=== PATIENT | male | born 1945 | race Caucasian/White ===

== ENCOUNTER 2018-06-27 09:11 | Emergency (ER) | payer MEDICARE, OTHER, SELFPAY ==
[2018-06-27] VITALS (7 sets, daily range): BP systolic 120–142; BP diastolic 64–88; PULSE 42–76; RESP 13–18; TEMP 36.4; O2SAT 93–100
--- NOTE | 2018-06-27 09:15 | DI.RAD.S_ITS ---
PROCEDURE: XR HIP W PEL IF DONE RT 2V INDICATIONS: right pain TECHNIQUE: AP pelvis with lateral view(s) of the right hip(s). COMPARISON: None. FINDINGS: Bones: Symmetric appearing mild to moderate bilateral hip joint osteoarthritic changes are seen. No evidence of avascular necrosis. No fractures or dislocations. Pelvic ring appears intact. No suspicious bony lesions. Soft tissues: The visualized bowel gas pattern is normal. No suspicious soft tissue calcifications. IMPRESSION: Symmetric appearing bilateral hip joint osteoarthritis. No hip fracture or dislocation. No evidence of avascular necrosis. Dictated by: Ayo aSntiago M.D. on 06/27/2018 at 9:32 Approved by: Aoy Santiago M.D. on 06/27/2018 at 9:35
--- NOTE | 2018-06-27 09:24 | DI.CT.S_ITS ---
PROCEDURE: CT HEAD/BRAIN WO CON INDICATIONS: syncope TECHNIQUE: Noncontrast 4.5 mm thick angled axial sections acquired from the foramen magnum to the vertex, with coronal and sagittal reformats. For radiation dose reduction, the following was used: automated exposure control, adjustment of mA and/or kV according to patient size. COMPARISON: None. FINDINGS: Image quality: Excellent. CSF spaces: Basal cisterns are patent. No extra-axial fluid collections. The ventricles are symmetric in size and shape. Brain: Subtle hypodensity in right inferior cerebellum could represent small subacute infarct. No intracranial bleeds or masses. There is mild cerebral volume loss for age, with resultant ventricular and sulcal prominence. There are mild periventricular and deep white matter chronic small vessel ischemic changes. There is intracranial internal carotid artery atherosclerosis. Skull and face: Calvarium and visualized facial bones appear intact, without suspicious lesions. Sinuses: Visualized sinuses and mastoids are clear. IMPRESSION: 1. Subtle hypodensity in right inferior cerebellum suggests small subacute infarct. MRI is suggested for further evaluation. 2. Cerebral volume loss and chronic microvascular ischemic changes. Dictated by: Obey Zaragoza M.D. on 06/27/2018 at 9:43 Approved by: Obey Zaragoza M.D. on 06/27/2018 at 9:47
[2018-06-27] MEDS: SODIUM CHLORIDE 0.9% 1,000 ML 150 ML IV (09:41)
[2018-06-27] MEDS: TET,DIPH,PERTUSS(ACELL),VAC/PF 0.5 ML SYRINGE IM (09:42)
--- NOTE | 2018-06-27 09:46 | ED_ITS ---
HPI - Fall General Chief Complaint: Fall Stated Complaint: Fall, slipped Time Seen by Provider: 06/27/18 09:15 Source: patient and EMS Mode of arrival: EMS Limitations: no limitations History of Present Illness HPI Narrative: Patient is a 72-year-old male who presents after of syncopal episode this morning. He sitting in his chair when the son said he witnessed him pass out briefly for about 15 sec at which point he slid out of the chair landing on his right hip and unable to walk on it. 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 Denies any chest pain heart palpitations dizziness lightheadedness. Complaining of only pain in his right hamstring area. MD complaint: fall Onset (ago): hour(s) Fall from: chair Fall witnessed: yes, by family (Son) Place fall occurred: home Loss of consciousness: yes Length of LOC: second(s) Prolonged down time: no Symptoms prior to fall: none Related Data Home Medications Medication Instructions Recorded Confirmed Fish Oil 1 cap PO DAILY 06/27/18 06/27/18 aspirin 81 mg PO DAILY 06/27/18 06/27/18 celecoxib 200 mg PO DAILY PRN 06/27/18 06/27/18 glucosamine-chondroitin 1 tab PO DAILY 06/27/18 06/27/18 losartan 50 mg PO DAILY 06/27/18 06/27/18 multivitamin 1 tab PO DAILY 06/27/18 06/27/18 tamsulosin 0.4 mg PO DAILY 06/27/18 06/27/18 Allergies Allergy/AdvReac Type Severity Reaction Status Date / Time almond Allergy Unknown Verified 06/27/18 11:29 amiodarone Allergy Unknown Verified 06/27/18 11:29 egg Allergy Unknown Verified 06/27/18 11:29 piroxicam [From Feldene] Allergy Unknown Verified 06/27/18 11:29 sulfamethoxazole Allergy Unknown Verified 06/27/18 11:29 [From Septra] trimethoprim [From Septra] Allergy Unknown Verified 06/27/18 11:29 Review of Systems Review of Systems ROS Unobtainable: All systems reviewed & are unremarkable except as noted in HPI and below Constitutional Denies chills, Denies fever(s), Denies lethargy and Denies weakness Eyes Denies change in vision, Denies eye discharge, Denies irritation and Denies loss of vision Cardiovascular Denies chest pain, Reports syncope, Denies dyspnea and Denies dyspnea on exertion Respiratory Denies cough, Denies dyspnea, Denies dyspnea on exertion and Denies wheezing Gastrointestinal Gastrointestinal: Denies abdominal pain, Denies change in bowel habits, Denies diarrhea, Denies nausea and Denies vomiting Genitourinary Denies hematuria, Denies flank pain, Denies urinary incontinence and Denies urinary urgency Musculoskeletal Reports as per HPI Integumentary/Breasts Denies pruritus, Denies erythema, Denies rash and Reports wounds (Wound on left fingers) Neurologic Reports syncope, Denies loss of vision and Denies weakness Allergic/Immunologic Denies wheezing Exam Initial Vital Signs Initial Vital Signs: Vital Signs Temperature 97.6 F 06/27/18 09:25 Pulse Rate 76 06/27/18 09:25 Respiratory Rate 13 06/27/18 09:25 Blood Pressure 141/88 H 06/27/18 09:25 Pulse Oximetry 97 06/27/18 09:25 GENERAL: Alert well-appearing male and in no acute distress. HEENT: Head atraumatic,EOMI, pupils reactive, face symmetric, moist mucous membranes NECK: No vertebral tenderness no step-offs CARDIOVASCULAR: Regular rate and rhythm without murmurs, rubs or gallops. RESPIRATORY: Breath sounds equal bilaterally, no wheezes rales or rhonchi. ABDOMEN: Soft, nontender. Normoactive bowel sounds all 4 quadrants. No guarding or rebound. : No CVA tenderness EXTREMITIES: Normal range of motion, no clubbing or edema. Neurovascularly intact. Right hip nontender legs are of equal length distal pedal pulse intact. H able to internally and externally rotate hip without pain. Right knee able to flex and extended knee completely. Although flexion is slightly limited due to pain in hamstring. NEUROLOGICAL: Alert and oriented x4.Normal gait and speech. Cranial nerves II through XII grossly intact. [employer] strength equal bilaterally SKIN: His lacerations noted left hand 3rd and 4th finger dorsal side. He is able to flex extend all fingers. Bleeding controlled with Band-Aid. Steri- Strips were placed on left middle finger. [facility] Social History Smoking Status: Never smoker Social History Smoking Status: Never smoker Scores NIH Stroke Scale Level of Conciousness: Alert, keenly responsive Ask month/age: Answers both questions correctly. Open/close eyes, close hand: Performs both tasks correctly Best gaze horizontal: Normal Visual stafford: No visual loss Facial palsy: Normal symetrical movement Left arm drift: No drift for full 10 sec Right arm drift: No drift for full 10 sec Left leg drift: No drift for full 10 sec Right leg drift: No drift for full 10 sec Limb ataxia: Absent Sensory on face/arms/legs: Normal, no sensory loss Best language: No aphasia, normal Dysarthria: Normal Extinction or inattention: No abnormality Total NIH Stroke scale score: 0 Course Orders Ordered: ED Orders 06/27/18 10:49 MR stroke Stat Discontinued Medications Diphtheria/Tetanus/Acell Pertussis (Adacel) 0.5 ml IM .ONCE ONE Stop: 06/27/18 09:36 Last Admin: 06/27/18 09:42 Dose: 0.5 ml Sodium Chloride (Normal Saline 0.9%) 1,000 mls @ 150 mls/hr IV BOLUS ONE Stop: 06/27/18 15:54 Last Infusion: 06/27/18 17:35 Dose: 0 mls/hr Admin: 06/27/18 09:41 Dose: 150 mls/hr Ibuprofen (Advil) 800 mg PO NOW ONE Stop: 06/27/18 11:52 Vital Signs - 8 hr 06/27/18 11:11 06/27/18 12:35 06/27/18 14:00 Pulse Rate 70 69 72 Respiratory Rate 17 17 15 Blood Pressure Blood Pressure [Left Arm] 141/74 H 137/67 142/64 H Pulse Oximetry 96 98 96 06/27/18 15:19 06/27/18 16:30 06/27/18 17:51 Pulse Rate 72 42 L 64 Respiratory Rate 15 17 18 Blood Pressure 132/78 Blood Pressure [Left Arm] 135/69 120/77 Pulse Oximetry 93 96 100 MDM - Fall Lab Data Attestation: I reviewed the patient's lab results. Result diagrams: 06/27/18 08:55 06/27/18 08:55 Lab Results 06/27/18 06/27/18 Range/Units 08:55 08:55 WBC 9.0 (4.5-11.0) X10^3/uL RBC 4.61 (4.5-5.9) X10^6/uL Hgb 14.3 (13.5-17.5) g/dL Hct 40.9 L (41-53) % MCV 88.8 (80-100) fL MCH 31.1 (26-34) PG MCHC 35.1 (30-36) % RDW 13.6 (11.6-14.8) % Plt Count 166 (150-400) X10^3/uL Neut % (Auto) 85.1 H (50-75) % Lymph % (Auto) 6.0 L (25-40) % [place] % (Auto) 6.2 (3-14) % Eos % (Auto) 2.2 (2-4) % Baso % (Auto) 0.5 (0-2) % Neut # (Auto) 7700 H (0132-8063) /uL Lymph # (Auto) 500 L (4597-6101) /uL [place] # (Auto) 600 (0-900) /uL Eos # (Auto) 200 (0-450) /uL Baso # (Auto) 0 (0-100) /uL Sodium 140 (137-145) mmol/L Potassium 4.1 (3.4-5.1) mmol/L Chloride 107 (98-107) mmol/L Carbon Dioxide 24 (22-32) mmol/L BUN 17 (9-20) mg/dL Creatinine 0.80 (0.66-1.25) mg/dL Estimated GFR > 60.0 (>60) mL/min BUN/Creatinine Ratio 21.3 (6-22) Glucose 109 (80-110) mg/dL Calcium 8.7 (8.4-10.2) mg/dL Total Bilirubin 1.1 (0.2-1.3) mg/dL AST 22 (17-59) IU/L ALT 29 (21-72) IU/L Alkaline Phosphatase 66 (38-126) U/L Total Creatine Kinase 135 (55-170) U/L CK-MB (CK-2) 2.33 (<2.37) ng/mL CK-MB (CK-2) Rel Index 1.7 (1.5-5.0) % Troponin I < 0.012 (0.01-0.034) ng/mL Total Protein 6.5 (6.3-8.2) g/dL Albumin 4.1 (3.5-5.0) g/dL Globulin 2.4 (1.7-4.1) g/dL Albumin/Globulin Ratio 1.7 (1.0-2.8) Point of Care Testing Glucose POC 98 Urine Dip Bedside Urine Glucose Negative Bedside Urine Bilirubin - Negative Bedside Urine Ketone - Negative Urine Specific [place] 1.025 Bedside Urine Protein - Negative Bedside Urine Urobilinogen - Negative Bedside Urine Nitrite - Negative Bedside Urine Leukocytes - Negative Esterase Imaging Data CT scan - head: Radiologist's impression: PROCEDURE: CT HEAD/BRAIN WO CON INDICATIONS: syncope TECHNIQUE: Noncontrast 4.5 mm thick angled axial sections acquired from the foramen magnum to the vertex, with coronal and sagittal reformats. For radiation dose reduction, the following was used: automated exposure control, adjustment of mA and/or kV according to patient size. COMPARISON: None. FINDINGS: Image quality: Excellent. CSF spaces: Basal cisterns are patent. No extra-axial fluid collections. The ventricles are symmetric in size and shape. Brain: Subtle hypodensity in right inferior cerebellum could represent small subacute infarct. No intracranial bleeds or masses. There is mild cerebral volume loss for age, with resultant ventricular and sulcal prominence. There are mild periventri cular and deep white matter chronic small vessel ischemic changes. There is intracranial internal carotid artery atherosclerosis. Skull and face: Calvarium and visualized facial bones appear intact, without suspicious lesions. Sinuses: Visualized sinuses and mastoids are clear. IMPRESSION: 1. Subtle hypodensity in right inferior cerebellum suggests small subacute infarct. MRI is suggested for further evaluation. 2. Cerebral volume loss and chronic microvascular ischemic changes. Dictated by: Obey Zaragoza M.D. on 06/27/2018 at 9:43 MRI - head: Radiologist's impression: PROCEDURE: MR STROKE Pre- and post-contrast brain MRI, non-contrast brain MR angiogram, pre- and postcontrast neck MR angiogram INDICATIONS: possible stroke on CT TECHNIQUE: Brain: Noncontrast axial T1 spin echo, axial T2 fast spin echo, sagittal and axial FLAIR, coronal T2 fast spin echo, axial gradient echo, axial diffusion and ADC through the brain. After the administration of contrast, axial 3D VIBE of the cranial vasculature and brain. Brain MRA: Non-contrast 3-D time of flight MR angiogram, with multiple fszucgs-nqrfcxjwj-trwxgvpmiu (MIP) reformats performed. Neck MRA: Axial and sagittal TruFISP through the neck. Coronal dynamic MR angiogram during administration of contrast in the arterial and venous phases, with 3- dimenstional qvvobok-vzssooxhk-qxirhuaock (MIP) reformats constructed from subtraction images. COMPARISON: [facility], CT, CT HEAD/BRAIN WO CON, 06/27/2018, 9:25. FINDINGS: Image quality: Excellent. BRAIN: CSF spaces: Ventricles are normal in size and shape. Basal cisterns are patent. No extra-axial fluid collections. Brain: No intracranial bleeds or mass effects. Rodriguez-white matter interface is normal. Diffusion weighted images show no acute ischemic insults. There are small area of old infarcts involving the right parietal lobe and left frontal lobe with encephalomalacia and gliosis. There are foci of T2 hyperintensity in the periventricular and subcortical white matter, consistent with chronic small vessel ischemic changes. Mild cerebral volume loss is present. Brainstem appears normal. Normal intravascular flow voids are present. No abnormal intracranial enhancement. Skull and face: Calvarial marrow signal is normal. Orbits appear normal. Sinuses: Mild right frontal, bilateral ethmoid, sigmoid and maxillary sinus mucosal thickening. Mastoids are clear. BRAIN MR ANGIOGRAM: Anterior circulation: Intracranial internal carotid arteries are normal in size and enhancement. The flow within the paired anterior cerebral arteries is normal and symmetric. The flow within the middle cerebral arteries is normal and symmetric. The anterior communicating artery is seen. No stenoses, occlusions, or aneurysms. Posterior circulation: The visualized portions of the vertebral arteries demonstrate normal caliber, and join to form a normal appearing basilar artery. The flow within the posterior cerebral arteries is normal and symmetric. No stenoses, occlusions, or aneurysms. NECK MR ANGIOGRAM: Carotids: Great vessels demonstrate a conventional anatomy as they arise from the aortic arch. The origins of the common carotid arteries appear patent. The calibers and courses of both common carotid arteries are normal. The bifurcation regions appear normal bilaterally. The internal carotid arteries demonstrate normal course and caliber. Posterior circulation: The origins of the vertebral arteries appear patent. More superior portions of both vertebral arteries demonstrate normal course and caliber, and join to form a normal appearing basilar artery. Miscellaneous: Subclavian arteries appear patent. Pre-contrast images through the neck show no soft tissue abnormalities. Suspect a 2.2 cm diameter venous aneurysm of the right subclavian vein arising from the superior wall. IMPRESSION: BRAIN MRI: 1. No acute intracranial abnormalities. No evidence for acute ischemic insult. 2. 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 3. Mild cerebral volume loss and chronic microvascular ischemic changes. BRAIN MR ANGIOGRAM: 1. No high-grade stenosis or occlusion in anterior circulations. 2. No high-grade stenosis or occlusion in posterior circulations. NECK MR ANGIOGRAM: 1. No significant stenosis or occlusion in cervical carotid arteries bilaterally. 2. No significant stenosis or occlusion cervical vertebral arteries bilaterally. 3. 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 Dictated by: Obey Zaragoza M.D. on 06/27/2018 at 16:46 right hip: Radiologist's impression: PROCEDURE: XR HIP W PEL IF DONE RT 2V INDICATIONS: right pain TECHNIQUE: AP pelvis with lateral view(s) of the right hip(s). COMPARISON: None. FINDINGS: Bones: Symmetric appearing mild to moderate bilateral hip joint osteoarthritic changes are seen. No evidence of avascular necrosis. No fractures or dislocations. Pelvic ring appears intact. No suspicious bony lesions. Soft tissues: The visualized bowel gas pattern is normal. No suspicious soft tissue calcifications. IMPRESSION: Symmetric appearing bilateral hip joint osteoarthritis. No hip fracture or dislocation. No evidence of avascular necrosis. Dictated by: Ayo Santiago M.D. on 06/27/2018 at 9:32 ECG Data Attestation: I personally reviewed and interpreted this ECG as follows: Prior ECG tracings: not available for review Interpretation: Normal sinus rhythm rate [address] changes no T-wave inversions TX interval 193 MDM Narrative Medical decision making narrative: Patient not showing focal deficits of CVA however he did have a syncopal episode, although CT does show a questionable subacute stroke. His right leg pain does seem to be musculoskeletal from fall ing rather than from a CVA. However patient will get a MRI of for confirmation. He has not needed anything for pain for his right leg. MRI does not reveal any subacute or acute CVA. Patient has been awake and alert without any recurrence of symptoms for the last 8 hr. Still complaining of some right hamstring pain. He has been ambulatory in the ED of but will require a walker to go home. Discharge Plan Departure Patient Disposition: Home Clinical Impression: Right hamstring muscle strain Qualifiers: Encounter type: initial encounter Qualified Code(s): S76.311A - Strain of muscle, fascia and tendon of the posterior muscle group at thigh level, right thigh, initial encounter Discharge Date/Time: 06/27/18 17:51 Interventions: ED Discharge Assessment Last Done: 06/27/18 17:51 Instructions: How to Prevent Falls Activity Restrictions/Additional Instructions: *You have been diagnosed with right hamstring injury *What to do: X-ray of hip, an MRI of brain are negative. No sign of stroke. Blood work is reassuring. -recommend using walker, increase activity as tolerated however light activity in courage no strenuous or long walks until injury has healed *Continue to take medications as directed Tylenol 650 mg every 4-6 hours if needed for pain Ibuprofen 600 mg every 6-8 hours if needed for pain *Follow up with your primary care provider in 2-3 days *Return to ER if you should have increasing weakness, numbness, tingling or any new, worsening or concerning symptoms Prescriptions: No Action multivitamin Tablet 1 tab PO DAILY RF: 0 losartan 50 mg Tablet 50 mg PO DAILY RF: 0 celecoxib 200 mg capsule 200 mg PO DAILY PRN (Reason: knee pain) RF: 0 aspirin 81 mg Tablet,Delayed Release (Dr/Ec) 81 mg PO DAILY RF: 0 tamsulosin 0.4 mg Capsule 0.4 mg PO DAILY RF: 0 Fish Oil 1 cap PO DAILY RF: 0 glucosamine-chondroitin 1 tab PO DAILY RF: 0
[2018-06-27 10:07] LABS: Add Manual Diff / Slide Review NO; Basophils Absolute Auto 0 /uL (0-100); Basophils Percent Auto 0.5 % (0-2); Eosinophils Absolute Auto 200 /uL (0-450); Eosinophils Percent Auto 2.2 % (2-4); Hematocrit 40.9 % (41-53); Hemoglobin 14.3 g/dL (13.5-17.5); Lymphocytes Absolute Auto 500 /uL (1100-4500); Mean Corpuscular HGB Conc 35.1 % (30-36); Mean Corpuscular Hemoglobin 31.1 PG (26-34); Mean Corpuscular Volume 88.8 fL (80-100); Monocytes Absolute Auto 600 /uL (0-900); Monocytes Percent Auto 6.2 % (3-14); Neutrophils Absolute Auto 7700 /uL (1500-7000); Neutrophils Percent Auto 85.1 % (50-75); Platelet Count 166 X10^3/uL (150-400); Red Blood Cell Count 4.61 X10^6/uL (4.5-5.9); Red Cell Distribution Width 13.6 % (11.6-14.8)
[2018-06-27 10:18] LABS: Alanine Aminotransferase 29 IU/L (21-72); Albumin 4.1 g/dL (3.5-5.0); Albumin Globulin Ratio 1.7 (1.0-2.8); Alkaline Phosphatase 66 U/L (38-126); Aspartate Aminotransferase 22 IU/L (17-59); BUN Creatinine Ratio 21.3 (6-22); Bilirubin Total 1.1 mg/dL (0.2-1.3); Blood Urea Nitrogen 17 mg/dL (9-20); Calcium 8.7 mg/dL (8.4-10.2); Carbon Dioxide 24 mmol/L (22-32); Chloride 107 mmol/L (98-107); Creatine Kinase 135 U/L (55-170); Estimated Glomerular Filt Rate > 60.0 mL/min (>60); Globulin 2.4 g/dL (1.7-4.1); Glucose 109 mg/dL (80-110); HEMOLYSIS < 15 (0-50); Potassium 4.1 mmol/L (3.4-5.1); Sodium 140 mmol/L (137-145); Total Protein 6.5 g/dL (6.3-8.2)
[2018-06-27 10:29] LABS: Troponin I < 0.012 ng/mL (0.01-0.034)
[2018-06-27 10:33] LABS: CKMB % Relative Index 1.7 % (1.5-5.0); Creatine Kinase MB 2.33 ng/mL (<2.37)
--- NOTE | 2018-06-27 10:49 | DI.MRI.S_ITS ---
PROCEDURE: MR STROKE Pre- and post-contrast brain MRI, non-contrast brain MR angiogram, pre- and postcontrast neck MR angiogram INDICATIONS: possible stroke on CT TECHNIQUE: Brain: Noncontrast axial T1 spin echo, axial T2 fast spin echo, sagittal and axial FLAIR, coronal T2 fast spin echo, axial gradient echo, axial diffusion and ADC through the brain. After the administration of contrast, axial 3D VIBE of the cranial vasculature and brain. Brain MRA: Non-contrast 3-D time of flight MR angiogram, with multiple kshunel-rurjzzzjo-cqntzhsllf (MIP) reformats performed. Neck MRA: Axial and sagittal TruFISP through the neck. Coronal dynamic MR angiogram during administration of contrast in the arterial and venous phases, with 3-dimenstional nuiqxat-mygyeeagk-sgzprjrwml (MIP) reformats constructed from subtraction images. COMPARISON: , CT, CT HEAD/BRAIN WO CON, 06/27/2018, 9:25. FINDINGS: Image quality: Excellent. BRAIN: CSF spaces: Ventricles are normal in size and shape. Basal cisterns are patent. No extra-axial fluid collections. Brain: No intracranial bleeds or mass effects. Rodriguez-white matter interface is normal. Diffusion weighted images show no acute ischemic insults. There are small area of old infarcts involving the right parietal lobe and left frontal lobe with encephalomalacia and gliosis. There are foci of T2 hyperintensity in the periventricular and subcortical white matter, consistent with chronic small vessel ischemic changes. Mild cerebral volume loss is present. Brainstem appears normal. Normal intravascular flow voids are present. No abnormal intracranial enhancement. Skull and face: Calvarial marrow signal is normal. Orbits appear normal. Sinuses: Mild right frontal, bilateral ethmoid, sigmoid and maxillary sinus mucosal thickening. Mastoids are clear. BRAIN MR ANGIOGRAM: Anterior circulation: Intracranial internal carotid arteries are normal in size and enhancement. The flow within the paired anterior cerebral arteries is normal and symmetric. The flow within the middle cerebral arteries is normal and symmetric. The anterior communicating artery is seen. No stenoses, occlusions, or aneurysms. Posterior circulation: The visualized portions of the vertebral arteries demonstrate normal caliber, and join to form a normal appearing basilar artery. The flow within the posterior cerebral arteries is normal and symmetric. No stenoses, occlusions, or aneurysms. NECK MR ANGIOGRAM: Carotids: Great vessels demonstrate a conventional anatomy as they arise from the aortic arch. The origins of the common carotid arteries appear patent. The calibers and courses of both common carotid arteries are normal. The bifurcation regions appear normal bilaterally. The internal carotid arteries demonstrate normal course and caliber. Posterior circulation: The origins of the vertebral arteries appear patent. More superior portions of both vertebral arteries demonstrate normal course and caliber, and join to form a normal appearing basilar artery. Miscellaneous: Subclavian arteries appear patent. Pre-contrast images through the neck show no soft tissue abnormalities. Suspect a 2.2 cm diameter venous aneurysm of the right subclavian vein arising from the superior wall. IMPRESSION: BRAIN MRI: 1. No acute intracranial abnormalities. No evidence for acute ischemic insult. 2. 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 3. Mild cerebral volume loss and chronic microvascular ischemic changes. BRAIN MR ANGIOGRAM: 1. No high-grade stenosis or occlusion in anterior circulations. 2. No high-grade stenosis or occlusion in posterior circulations. NECK MR ANGIOGRAM: 1. No significant stenosis or occlusion in cervical carotid arteries bilaterally. 2. No significant stenosis or occlusion cervical vertebral arteries bilaterally. 3. 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 Dictated by: Obey Zaragoza M.D. on 06/27/2018 at 16:46 Approved by: Obey Zaragoza M.D. on 06/27/2018 at 17:08
== END 2018-06-27 17:51 | disposition home or self-care (01) ==
PROVIDERS: Emergency Provider Emergency Medicine
DX: S76.311A Strain of muscle, fascia and tendon of the posterior muscle group at thigh level, right thigh, initial encounter (principal); W07.XXXA Fall from chair, initial encounter; R55 Syncope and collapse; Z23 Encounter for immunization
CPT/HCPCS: 70450; 70553; 73502; 80053; 81003; 82550; 82553; 82962; 84484; 85025; 90471; 93005; 96360; 96361; 99284; 90715; A9579

== ENCOUNTER → 2018-07-12 15:12 | Outpatient (CLI) | payer MEDICARE, OTHER, SELFPAY ==
--- NOTE | 2018-07-12 | DI.US.S_ITS ---
PROCEDURE: US ABD AORTA ANEURYSM SCREEN INDICATIONS: AAA TECHNIQUE: Real time scanning was performed of the aorta and iliac arteries, with image documentation. COMPARISON: None. FINDINGS: Aorta: Proximal aortic diameter measures 2.7 cm. Mid-aorta measures 2.1 cm. Distal aortic diameter is 2.2 cm. Iliac arteries: Right common iliac artery measures 1.5 cm. Left common iliac artery measures 1.1 cm. Other: Incidental note was made of a small simple appearing cysts involving the left hepatic lobe. IMPRESSION: No evidence of abdominal aortic aneurysm. Dictated by: Jamie Batista M.D. on 07/12/2018 at 16:15 Approved by: Jamie Batista M.D. on 07/12/2018 at 16:17
[2018-07-12 15:24] LABS: Bacteria Urine None Seen; RBC Urine None Seen (0-5/HPF); WBC Urine None Seen (0-5/HPF)
[2018-07-12 15:36] LABS: Add Manual Diff / Slide Review NO; Basophils Absolute Auto 100 /uL (0-100); Basophils Percent Auto 0.9 % (0-2); Eosinophils Absolute Auto 300 /uL (0-450); Eosinophils Percent Auto 3.1 % (2-4); Hematocrit 42.8 % (41-53); Hemoglobin 14.8 g/dL (13.5-17.5); Lymphocytes Absolute Auto 1200 /uL (1100-4500); Lymphocytes Percent Auto 13.5 % (25-40); Mean Corpuscular HGB Conc 34.6 % (30-36); Mean Corpuscular Hemoglobin 30.9 PG (26-34); Mean Corpuscular Volume 89.2 fL (80-100); Monocytes Absolute Auto 700 /uL (0-900); Monocytes Percent Auto 8.3 % (3-14); Neutrophils Absolute Auto 6600 /uL (1500-7000); Neutrophils Percent Auto 74.2 % (50-75); Platelet Count 215 X10^3/uL (150-400); Red Cell Distribution Width 13.4 % (11.6-14.8); White Blood Cell Count 8.9 X10^3/uL (4.5-11.0)
[2018-07-12 15:37] LABS: Appearance Urine UA CLEAR; Bilirubin Urine UA NEGATIVE (NEGATIVE); Color Urine UA YELLOW; Glucose Urine UA NEGATIVE (Negative); Ketones Urine UA TRACE (NEGATIVE); Leukocyte Esterase Urine UA NEGATIVE (NEGATIVE); Nitrite Urine UA NEGATIVE (Negative); Occult Blood Urine UA NEGATIVE (Negative); Protein Urine UA NEGATIVE (Negative); Specific Gravity Urine UA 1.015 (1.000-1.035); Urobilinogen Urine UA 0.2 E.U./dL (0.2)
[2018-07-12 15:50] LABS: Alanine Aminotransferase 33 IU/L (21-72); Albumin 4.9 g/dL (3.5-5.0); Albumin Globulin Ratio 1.8 (1.0-2.8); Alkaline Phosphatase 87 U/L (38-126); Amylase 55 U/L (30-110); Aspartate Aminotransferase 27 IU/L (17-59); BUN Creatinine Ratio 18.9 (6-22); Bilirubin Total 1.5 mg/dL (0.2-1.3); Blood Urea Nitrogen 17 mg/dL (9-20); Calcium 9.2 mg/dL (8.4-10.2); Carbon Dioxide 26 mmol/L (22-32); Chloride 101 mmol/L (98-107); Cholesterol 199 mg/dL (140-199); Estimated Glomerular Filt Rate > 60.0 mL/min (>60); Globulin 2.8 g/dL (1.7-4.1); Glucose 93 mg/dL (80-110); HDL Cholesterol 32 mg/dL (40-60); HEMOLYSIS < 15 (0-50); LDL Cholesterol Calculated 132 mg/dL (<100); Lipase 112 U/L (23-300); Potassium 4.2 mmol/L (3.4-5.1); Sodium 139 mmol/L (137-145); Total Protein 7.7 g/dL (6.3-8.2); Triglycerides 176 mg/dL (35-150)
[2018-07-12 15:56] LABS: Culture Indicated Urine Cult Not Indicated; Squamous Epithelial Cell Urine 0-1 /HPF
== END ==
PROVIDERS: PCP Internal Medicine; Visit Provider Internal Medicine
DX: I71.4 Abdominal aortic aneurysm, without rupture (principal); I10 Essential (primary) hypertension; K76.89 Other specified diseases of liver; R10.32 Left lower quadrant pain; Z86.79 Personal history of other diseases of the circulatory system
CPT/HCPCS: 36415; 76706; 80053; 80061; 81001; 82150; 83690; 85025

== ENCOUNTER → 2018-08-04 13:31 | Outpatient (CLI) | payer MEDICARE, OTHER, SELFPAY ==
--- NOTE | 2018-08-04 | DI.US.S_ITS ---
PROCEDURE: US PERIPH VENOUS LOW EXTREM RT INDICATIONS: PAIN IN RIGHT LEG 6 WEEKS POST FALL TECHNIQUE: Real-time imaging, as well as color and pulse Doppler interrogation, were performed of the lower extremity deep veins from the inguinal ligament to the popliteal fossa. COMPARISON: None. FINDINGS: The common femoral, femoral and popliteal veins are normally compressible, and free of intraluminal thrombus. Color and pulse Doppler demonstrate normal phasic intraluminal flow. There is normal augmentation response to distal compression maneuver. Complex avascular fluid collection seen within the posterior medial right thigh. IMPRESSION: 1. No deep venous thrombosis identified within the right lower extremity. 2. Complex fluid collection within the right side. Although findings may be related to hematoma, inflammatory or neoplastic mass cannot be excluded and clinical correlation and management recommended. Dictated by: Sherman LOPEZ Interpreted: Ayo Santiago MD on 08/04/2018 at 15:51 Approved by: Musa Traylor M.D. on 08/04/2018 at 17:40
== END ==
PROVIDERS: PCP Internal Medicine; Visit Provider Internal Medicine
DX: M79.604 Pain in right leg (principal)
CPT/HCPCS: 93971

== ENCOUNTER → 2018-08-05 08:43 | Outpatient (CLI) | payer MEDICARE, OTHER, SELFPAY ==
[2018-08-08 13:49] LABS: Sex Hormone Binding Globulin 55 nmol/L (22-77); Testosterone, Bioavailable 95.2 ng/dL (15.0-150.0); Testosterone, Total 550 ng/dL (250-1100); Testosterone,Free 48.3 pg/mL (6.0-73.0)
[2018-08-08 15:03] LABS: Albumin 4.3
== END ==
PROVIDERS: PCP Internal Medicine; Visit Provider Internal Medicine
DX: M79.604 Pain in right leg (principal)
CPT/HCPCS: 36415; 82040; 84270; 84403

== ENCOUNTER → 2018-12-15 12:38 | Outpatient (CLI) | payer MEDICARE, OTHER, SELFPAY | PROVIDERS: PCP Internal Medicine; Visit Provider Internal Medicine | DX: G57.31 Lesion of lateral popliteal nerve, right lower limb (principal) | CPT/HCPCS: 95885; 95886; 95910 ==

== ENCOUNTER → 2018-12-28 08:22 | Outpatient (CLI) | payer MEDICARE, OTHER, SELFPAY ==
[2018-12-28 09:49] LABS: Add Manual Diff / Slide Review NO; Basophils Absolute Auto 100 /uL (0-100); Basophils Percent Auto 0.8 % (0-2); Eosinophils Absolute Auto 200 /uL (0-450); Eosinophils Percent Auto 2.8 % (2-4); Hemoglobin 13.8 g/dL (13.5-17.5); Lymphocytes Absolute Auto 600 /uL (1100-4500); Lymphocytes Percent Auto 8.5 % (25-40); Mean Corpuscular HGB Conc 33.7 % (30-36); Mean Corpuscular Hemoglobin 30.6 PG (26-34); Mean Corpuscular Volume 90.7 fL (80-100); Monocytes Absolute Auto 500 /uL (0-900); Monocytes Percent Auto 7.5 % (3-14); Neutrophils Absolute Auto 5600 /uL (1500-7000); Neutrophils Percent Auto 80.4 % (50-75); Platelet Count 158 X10^3/uL (150-400); Red Blood Cell Count 4.52 X10^6/uL (4.5-5.9); Red Cell Distribution Width 14.4 % (11.6-14.8)
[2018-12-28 10:46] LABS: Alanine Aminotransferase 25 IU/L (21-72); Albumin 4.2 g/dL (3.5-5.0); Albumin Globulin Ratio 1.7 (1.0-2.8); Alkaline Phosphatase 63 U/L (38-126); Aspartate Aminotransferase 24 IU/L (17-59); Bilirubin Total 0.7 mg/dL (0.2-1.3); Blood Urea Nitrogen 16 mg/dL (9-20); Calcium 9.1 mg/dL (8.4-10.2); Carbon Dioxide 28 mmol/L (22-32); Chloride 105 mmol/L (98-107); Cholesterol 176 mg/dL (140-199); Estimated Glomerular Filt Rate > 60.0 mL/min (>60); Globulin 2.5 g/dL (1.7-4.1); Glucose 108 mg/dL (80-110); HDL Cholesterol 37 mg/dL (40-60); HEMOLYSIS < 15 (0-50); LDL Cholesterol Calculated 121 mg/dL (<100); Potassium 4.5 mmol/L (3.4-5.1); Sodium 144 mmol/L (137-145); Total Protein 6.7 g/dL (6.3-8.2); Triglycerides 91 mg/dL (35-150)
[2018-12-28 11:05] LABS: Prostate Specific Antigen 1.47 ng/mL (0.10-4.00)
[2018-12-28 11:07] LABS: TSH w/ Reflex to FT4 1.95 uIU/mL (0.47-4.68)
[2018-12-28 11:23] LABS: Vitamin B12 297 pg/mL (239-931)
[2019-01-02 22:36] LABS: Albumin 4.1 g/dL (3.8-4.8); Alpha 1 Globulin 0.3 g/dL (0.2-0.3); Alpha 2 Globulin 0.6 g/dL (0.5-0.9); Beta 1 Globulin 0.4 g/dL (0.4-0.6); Gamma Globulin 0.6 g/dL (0.8-1.7); Protein, Total 6.2 g/dL (6.1-8.1)
== END ==
PROVIDERS: PCP Internal Medicine; Visit Provider Internal Medicine
DX: Z00.00 Encounter for general adult medical examination without abnormal findings (principal); G62.9 Polyneuropathy, unspecified; I10 Essential (primary) hypertension; N40.1 Benign prostatic hyperplasia with lower urinary tract symptoms
CPT/HCPCS: 36415; 80053; 80061; 82607; 82784; 84153; 84155; 84165; 84443; 85025; 86334

== ENCOUNTER → 2019-01-05 11:43 | Outpatient (CLI) | payer MEDICARE, OTHER, SELFPAY ==
[2019-01-05 12:11] LABS: Add Manual Diff / Slide Review NO; Basophils Absolute Auto 100 /uL (0-100); Basophils Percent Auto 0.7 % (0-2); Eosinophils Absolute Auto 100 /uL (0-450); Eosinophils Percent Auto 1.2 % (2-4); Hematocrit 46.7 % (41-53); Hemoglobin 15.9 g/dL (13.5-17.5); Lymphocytes Absolute Auto 900 /uL (1100-4500); Lymphocytes Percent Auto 10.2 % (25-40); Mean Corpuscular HGB Conc 34.1 % (30-36); Mean Corpuscular Hemoglobin 30.7 PG (26-34); Mean Corpuscular Volume 90.1 fL (80-100); Monocytes Absolute Auto 800 /uL (0-900); Monocytes Percent Auto 8.9 % (3-14); Neutrophils Absolute Auto 6700 /uL (1500-7000); Platelet Count 202 X10^3/uL (150-400); Red Blood Cell Count 5.18 X10^6/uL (4.5-5.9); Red Cell Distribution Width 14.7 % (11.6-14.8); White Blood Cell Count 8.5 X10^3/uL (4.5-11.0)
[2019-01-08 15:17] LABS: Intrinsic Factor Blocking Aby EQUIVOCAL
[2019-01-09 13:50] LABS: Albumin 100 %; Protein/ Creatinine Ratio 100 mg/g creat (22-128); Total Urine Protein 7 mg/dL (5-25); Urine Creatinine, Random 70 mg/dL (20-320)
== END ==
PROVIDERS: PCP Internal Medicine; Visit Provider Internal Medicine
DX: D72.9 Disorder of white blood cells, unspecified (principal); D80.1 Nonfamilial hypogammaglobulinemia; E53.8 Deficiency of other specified B group vitamins
CPT/HCPCS: 36415; 84156; 84166; 85025; 86340

== ENCOUNTER → 2019-01-09 07:54 | Outpatient (CLI) | payer MEDICARE, OTHER, SELFPAY | PROVIDERS: PCP Internal Medicine; Visit Provider Internal Medicine | DX: D80.1 Nonfamilial hypogammaglobulinemia (principal); E53.8 Deficiency of other specified B group vitamins | CPT/HCPCS: 83883 ==

== ENCOUNTER → 2019-02-28 09:01 | Outpatient (CLI) | payer MEDICARE, OTHER, SELFPAY ==
--- NOTE | 2019-02-28 | DI.MRI.S_ITS ---
PROCEDURE: MR KNEE RT WO CON INDICATIONS: Lesion of lateral popliteal nerve, right lower diaz TECHNIQUE: Noncontrast sagittal PD fast spin echo and T2 fast spin echo with fat saturation, sagittal 3-D FLASH with fat saturation; coronal T1 spin echo and PD fast spin echo with fat saturation, and axial PD fast spin echo with fat saturation through the knee. COMPARISON: None. FINDINGS: Image quality: Diagnostic. Bones and joint: There is no acute fracture or dislocation. No suspicious osseous lesions are evident. There is a small to moderate size knee joint effusion with an associated Mcadams's cyst. Edema about the Mcadams's cyst is present. 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 There are smoothly marginated large full thickness defects of the hyaline articular cartilage along the lateral femoral condyle and the lateral tibial plateau with underlying degenerative cystic change/reactive marrow edema. Associated marginal osteophytes are present. There also are marginal osteophytes within the femoral notch and patellofemoral compartment. The hyaline articular cartilage within the medial head patellofemoral compartment is somewhat heterogeneous without large defects appreciated. Cruciate ligaments: The anterior and posterior cruciate ligaments are intact. Menisci: There is a complex tear noted involving the lateral meniscus. Blunting along the free edge of the lateral meniscus could potentially be related to previous partial meniscectomy. However, a displaced meniscal flap extending into the adjacent lateral gutter is difficult to exclude. Partial-thickness tearing involving the anterior attachment of the lateral meniscus is noted. There is low-grade partial-thickness tearing involving the posterior root of the medial meniscus with associated small para meniscal cysts abutting the posterior meniscal root. An additional small nondisplaced oblique tear is seen along the body of the medial meniscus that extends from the periphery on to the inferior articular surface. Medial structures: The medial collateral ligament is intact, but noted to be mildly thickened and minimally edematous. The semimembranosus tendon insertion is thickened and edematous with moderate grade partial-thickness tearing. Fluid is contained within its corresponding bursa.. The imaged portions of the pes anserinus tendons are unremarkable. No significant fluid is contained within the pes anserinus bursa. Lateral structures: The popliteal tendon is edematous and thickened. The lateral collateral ligament proper (fibular collateral ligament) and the proximal tibiofibular ligaments are intact. The distal aspect of the biceps femoris tendon and the iliotibial band are intact. However, there is thickening and increased signal evident involving the insertion of the iliotibial band. Anterior structures: The quadriceps and patellar tendons are intact. Mild prepatellar edema is present. There is no significant edema in the infrapatellar fat pad. IMPRESSION: 1. 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 2. Complex tearing versus postoperative changes of the lateral meniscus. Please correlate clinically. 3. Nondisplaced medial meniscal tears as described. 4. Possible medial collateral ligament sprain versus scarring. 5. Moderate grade partial-thickness tearing and tendinopathy of the semimembranosus insertion. 6. Moderate proximal popliteal tendinopathy without significant tearing. 7. Tendinopathy involving the distal iliotibial band. 8. Small to moderate size knee joint effusion with an associated probable leaking Mcadams's cyst. Dictated by: Jamie Batista M.D. on 02/28/2019 at 9:46 Approved by: Jamie Batista M.D. on 02/28/2019 at 9:51
== END ==
PROVIDERS: PCP Internal Medicine; Visit Provider Internal Medicine
DX: G57.31 Lesion of lateral popliteal nerve, right lower limb (principal); S83.241A Other tear of medial meniscus, current injury, right knee, initial encounter; M71.21 Synovial cyst of popliteal space [Baker], right knee; M25.461 Effusion, right knee; M67.961 Unspecified disorder of synovium and tendon, right lower leg
CPT/HCPCS: 73721

== ENCOUNTER → 2019-04-25 11:31 | Outpatient (CLI) | payer MEDICARE, OTHER, SELFPAY | PROVIDERS: PCP Internal Medicine; Visit Provider Internal Medicine | DX: Z82.49 Family history of ischemic heart disease and other diseases of the circulatory system (principal) | CPT/HCPCS: 36415; 85306 ==

== ENCOUNTER → 2019-05-16 08:43 | Outpatient (CLI) | payer MEDICARE, OTHER, SELFPAY ==
--- NOTE | 2019-05-16 | DI.ECHO.S_ITS ---
[facility] +---------+ : : [address] [place] : : : : [id number] : : : : Phone: [phone]+ Echocardiogram Report + + :Name: BELEN NÚÑEZ Study Date: 05/16/2019 Height: 72 in : :[facility] Weight: 205 lb : : Gender: Male BSA: 2.2 m2 : :: 1945 Age: 73 yrs BP: 152/76 mmHg: :Reason For Study: Aortic valve replacement - bioprosthetic : :Ordering Physician: Willian : :Anmol Cani Performed By: Steve Ramirez : :Referring: WILLIAN COREA : + + Interpretation Summary The left ventricle is normal in size. Left ventricular systolic function is normal. The ejection fraction is estimated to be 60-65%. Left ventricular wall motion is normal. Diastolic parameters suggest probable normal left ventricular diastolic function and normal filling pressures. The right ventricle is mildly dilated. Right ventricular systolic function is at the lower limits of normal. Right ventricular systolic pressure is estimated to be 21 mmHg plus the clinically estimated CVP which cannot be estimated on this exam. The left atrium is mildly dilated. Right atrial size is normal. There is a bioprosthetic aortic valve. The aortic valve mean gradient is 15 mmHg. There is no other significant valvular heart disease. The aortic root is normal size. Procedure: A two-dimensional transthoracic echocardiogram with color flow and Doppler was performed. The study quality was technically adequate. There is no prior echocardiogram noted for this patient. Left Ventricle: The left ventricle is normal in size. There is mild asymmetric left ventricular hypertrophy. Left ventricular systolic function is normal. The ejection fraction is estimated to be 60-65%. Left ventricular wall motion is normal. Diastolic parameters suggest probable normal left ventricular diastolic function and normal filling pressures. Right Ventricle: The right ventricle is mildly dilated. Right ventricular systolic function is at the lower limits of normal. Atria: The left atrium is mildly dilated. Right atrial size is normal. The interatrial septum is intact with no evidence for an atrial septal defect. Mitral Valve: The mitral valve leaflets appear mildly thickened, but open well. There is no mitral regurgitation noted. Aortic Valve: There is a bioprosthetic aortic valve. The prosthetic aortic valve is well-seated. The aortic valve mean gradient is 15 mmHg. No aortic regurgitation is present. Tricuspid Valve: The tricuspid valve is normal in structure and function. There is trace tricuspid regurgitation. Right ventricular systolic pressure is estimated to be 21 mmHg plus the clinically estimated CVP which cannot be estimated on this exam. Pulmonic Valve: The pulmonic valve is normal in structure and function. There is trace pulmonic regurgitation. There is no other significant valvular heart disease. Great Vessels: The aortic root is normal size. The dimensions of the ascending aorta are normal. The pulmonary artery is normal size. The inferior vena cava was not visualized. Pericardium/ Pleura There is no pericardial effusion. There is no pleural effusion. MMode/2D Measurements & Calculations LVIDd: 4.6 cm LVOT diam: 2.0 cm LVIDs: 3.0 cm Ao root diam: 2.8 cm FS: 34.1 % Aortic Jxn: 2.7 cm EPSS: 0.66 cm IVSd: 1.4 cm LVPWd: 1.1 cm LV boyer. diameter/BSA (cm/m^2): 2.1 LV sys. diameter/BSA (cm/m^2): 1.4 LA A2 area: 23.4 cm2 RA long axis: 5.0 cm LA A4 area: 25.2 cm2 RA area: 16.3 cm2 LA length (vol): 6.6 cm RA vol: 45.3 ml LA vol: 75.9 ml RA : 21.0 ml/m2 LA vol index: 35.3 ml/m2 TAPSE: 1.5 cm Doppler Measurements & Calculations Ao V2 max: 250.7 cm/sec LVOT Max Ren: 104.8 cm/sec Ao V2 mean: 175.4 cm/sec LV V1 max P.4 mmHg Ao max P.7 mmHg LV V1 VTI: 22.7 cm Ao mean P.0 mmHg DEBRA(I,D): 1.3 cm2 Ao V2 VTI: 52.7 cm DEBRA(V,D): 1.3 cm2 sev ratio: 0.43 DEBRA indexed to BSA (cm^2/m^2): 0.62 MV E max ren: 102.3 cm/sec TR max ren: 225.8 cm/sec MV A max ren: 50.8 cm/sec TR max P.9 mmHg MV E/A: 2.0 PA V2 max: 75.4 cm/sec Med Peak E' Ren: 8.5 cm/sec PA V2 mean: 58.9 cm/sec E/E' med: 12.1 PA mean P.5 mmHg Lat Peak E' Ren: 14.1 cm/sec PA Accel Time: 0.11 sec E/E' lat: 7.3 E/e' average: 9.7 MV dec time: 0.31 sec SV(LVOT): 70.5 ml Reading Physician:05:51 PM
== END ==
PROVIDERS: PCP Internal Medicine; Visit Provider Internal Medicine Cardiovascular Disease
DX: I51.7 Cardiomegaly (principal); Z95.2 Presence of prosthetic heart valve
CPT/HCPCS: 93306

== ENCOUNTER → 2019-06-15 10:59 | Outpatient (CLI) | payer MEDICARE, OTHER, SELFPAY ==
--- NOTE | 2019-06-15 | DI.US.S_ITS ---
PROCEDURE: US PERIPH VENOUS LOW EXTREM LT INDICATIONS: PAIN TECHNIQUE: Real-time imaging, as well as color and pulse Doppler interrogation, were performed of the lower extremity deep veins from the inguinal ligament to the popliteal fossa. COMPARISON: None. FINDINGS: The common femoral, femoral and popliteal veins are normally compressible, and free of intraluminal thrombus. Color and pulse Doppler demonstrate normal phasic intraluminal flow. There is normal augmentation response to distal compression maneuver. IMPRESSION: No evidence of deep venous thrombosis. Dictated by: Freddy Dodge M.D. on 06/15/2019 at 16:33 Approved by: Freddy Dodge M.D. on 06/15/2019 at 16:34
== END ==
PROVIDERS: PCP Internal Medicine; Referring Provider Internal Medicine; Visit Provider Internal Medicine
DX: M79.605 Pain in left leg (principal)
CPT/HCPCS: 93971

== ENCOUNTER → 2019-06-28 07:22 | Outpatient (CLI) | payer MEDICARE, OTHER, SELFPAY ==
--- NOTE | 2019-06-28 | DI.MRI.S_ITS ---
PROCEDURE: MR LOWER LEG LT WO CON COMPARISON: [facility], MR, MR KNEE RT WO CON, 02/28/2019, 9:35. INDICATIONS: Pain in left leg TECHNIQUE: Coronal T1-weighted, STIR, axial T1 weighted, Axial T1 weighted, fat-suppressed T2-weighted, Sagittal T1 weighted, STIR through the left femur FINDINGS: Para signal intensity grossly unremarkable. No evidence of acute fracture identified. Muscle signal intensity within normal limits. No atrophy. No discrete mass is seen. No pathologically enlarged lymphadenopathy. Few scattered superficial varices are incidentally noted. A large field of view pulse sequences, there is marked geographic edema and signal change with heterogeneous appearance involving the hamstring muscles. There is also asymmetric right-sided muscle atrophy suggesting denervation. Left hamstring origin tendinopathy, thickening and intrasubstance T2 hyperintensity IMPRESSION: No discrete mass seen within the left thigh. Incidentally noted small superficial varices. Left hamstring origin tendinopathy, technically age-indeterminate. Marked signal changes and atrophy of the right hamstring musculature suggestive of denervation, or potentially chronic posttraumatic etiology. Please correlate clinically and if necessary with EMG studies. This is only partially evaluated due to exam protocol (dedicated for left sided symptoms) Dictated by: Freddy Dodge M.D. on 06/28/2019 at 14:05 Approved by: Freddy Dodge M.D. on 06/28/2019 at 14:14
== END ==
PROVIDERS: PCP Internal Medicine; Referring Provider Internal Medicine; Visit Provider Internal Medicine
DX: M79.605 Pain in left leg (principal); I83.92 Asymptomatic varicose veins of left lower extremity; M67.952 Unspecified disorder of synovium and tendon, left thigh
CPT/HCPCS: 73718

== ENCOUNTER → 2019-12-07 12:04 | Outpatient (CLI) | payer MEDICARE, OTHER, SELFPAY ==
--- NOTE | 2019-12-07 | DI.US.S_ITS ---
PROCEDURE: US [facility] VENOUS LOW EXTREM LT INDICATIONS: PAIN IN LT LEG TECHNIQUE: Real-time imaging, as well as color and pulse Doppler interrogation, were performed of the lower extremity deep veins from the inguinal ligament to the popliteal fossa. COMPARISON: [facility], , [facility] VENOUS LOW EXTREM LT, 06/15/2019, 11:53. FINDINGS: The common femoral, femoral and popliteal veins are normally compressible, and free of intraluminal thrombus. Color and pulse Doppler demonstrate normal phasic intraluminal flow. There is normal augmentation response to distal compression maneuver. What potentially is a lipoma at the left medial thigh measures 2.0 x 0.7 x 1.7 cm. IMPRESSION: Apparent lipoma medial thigh, no DVT found. Continued clinical correlation for this palpable lump is recommended and if unusual symptoms develop or appreciable interval growth develops follow-up by contrast-enhanced MR scanning is recommended. Dictated by: Musa Traylor M.D. on 12/07/2019 at 13:12 Approved by: Musa Traylor M.D. on 12/07/2019 at 13:13
== END ==
PROVIDERS: PCP Internal Medicine; Referring Provider Internal Medicine; Visit Provider Internal Medicine
DX: M79.605 Pain in left leg (principal)
CPT/HCPCS: 93971

== ENCOUNTER → 2020-08-22 08:17 | Outpatient (CLI) | payer MEDICARE, OTHER, SELFPAY ==
[2020-08-22 08:51] LABS: Add Manual Diff / Slide Review NO; Basophils Absolute Auto 100 /uL (0-100); Basophils Percent Auto 1.1 % (0-2); Eosinophils Absolute Auto 200 /uL (0-450); Eosinophils Percent Auto 3.5 % (2-4); Hematocrit 40.5 % (41-53); Hemoglobin 14.1 g/dL (13.5-17.5); Lymphocytes Absolute Auto 800 /uL (1100-4500); Lymphocytes Percent Auto 12.3 % (25-40); Mean Corpuscular HGB Conc 34.8 % (30-36); Mean Corpuscular Hemoglobin 31.2 PG (26-34); Mean Corpuscular Volume 89.6 fL (80-100); Monocytes Absolute Auto 600 /uL (0-900); Monocytes Percent Auto 10.2 % (3-14); Neutrophils Absolute Auto 4500 /uL (1500-7000); Neutrophils Percent Auto 72.9 % (50-75); Platelet Count 154 X10^3/uL (150-400); Red Blood Cell Count 4.52 X10^6/uL (4.5-5.9); White Blood Cell Count 6.2 X10^3/uL (4.5-11.0)
[2020-08-22 09:12] LABS: Alanine Aminotransferase 24 IU/L (<50); Albumin Globulin Ratio 1.5 (1.0-2.8); Alkaline Phosphatase 70 U/L (38-126); Aspartate Aminotransferase 31 IU/L (17-59); BUN Creatinine Ratio 24.7 (6-22); Bilirubin Total 1.6 mg/dL (0.2-1.3); Blood Urea Nitrogen 20 mg/dL (9-20); Calcium 9.1 mg/dL (8.4-10.2); Carbon Dioxide 27 mmol/L (22-32); Chloride 107 mmol/L (98-107); Cholesterol 148 mg/dL (140-199); Estimated Glomerular Filt Rate > 60.0 mL/min (>60); Globulin 2.6 g/dL (1.7-4.1); Glucose 99 mg/dL (80-110); HDL Cholesterol 34 mg/dL (40-60); HEMOLYSIS < 15 (0-50); LDL Cholesterol Calculated 103 mg/dL (<100); Potassium 4.1 mmol/L (3.4-5.1); Sodium 140 mmol/L (137-145); Total Protein 6.6 g/dL (6.3-8.2); Triglycerides 53 mg/dL (35-150)
== END ==
PROVIDERS: PCP Internal Medicine; Referring Provider Internal Medicine Cardiovascular Disease; Visit Provider Internal Medicine Cardiovascular Disease
DX: I48.0 Paroxysmal atrial fibrillation (principal); I25.10 Atherosclerotic heart disease of native coronary artery without angina pectoris
CPT/HCPCS: 36415; 80053; 80061; 85025

== ENCOUNTER → 2021-04-03 15:55 | Outpatient (CLI) | payer OTHER, SELFPAY ==
--- NOTE | 2021-04-03 | DI.MRI.S_ITS ---
PROCEDURE: MR KNEE LT WO CON INDICATIONS: Pain in left knee TECHNIQUE: Noncontrast sagittal PD fast spin echo and T2 fast spin echo with fat saturation, sagittal 3-D FLASH with fat saturation; coronal T1 spin echo and PD fast spin echo with fat saturation, and axial PD fast spin echo with fat saturation through the knee. COMPARISON: [facility], MR, MR KNEE RT WO CON, 02/28/2019, 9:35. FINDINGS: Image quality: Excellent. Menisci: There is peripheral displacement of medial meniscus bowing medial collateral ligament. Complex tear involving body and posterior horn of medial meniscus is seen extending to both superior and inferior articulating surfaces. There is also suggestion of oblique tear involving posterior horn of lateral meniscus extending to inferior articulating surface. The meniscal root ligaments appear intact. Cruciate ligaments: The anterior and posterior cruciate ligaments appear intact. Medial structures: There is low-grade MCL sprain/partial-thickness tear.. The posterior oblique ligament, semimembranosus tendon insertions, oblique popliteal ligament, and meniscocapsular junction appear intact. Visualized portions of the pes anserinus tendons appear normal. No abnormal bursal fluid. Lateral structures: The lateral collateral ligament, long and short heads of the biceps femoris tendon appear intact. The popliteus tendon appears normal; the popliteofibular ligament appears intact. The posterosuperior and anteroinferior popliteomeniscal fascicles appear intact. The arcuate and fabellofibular ligaments appear intact, on either side of the lateral inferior geniculate artery. Iliotibial band appears normal. Anterior structures: Distal quadriceps tendinosis at its superior patellar insertion is seen. The patellar tendon is intact.. Patellar alignment is normal. No femoral trochlear dysplasia or ventral trochlear prominence. No edema in the infrapatellar fat pad. Bones and cartilage: No bone marrow contusions or fractures. Mild to moderate tricompartmental osteoarthritis and chondromalacia is seen more prominent in medial femoral tibial compartment. Joint space: There is small to moderate amount of joint fluid. No Mcadams's cyst. Normal appearing synovial plicae are incidentally noted. IMPRESSION: 1. Complex tear involving body and posterior horn of medial meniscus extending to both superior and inferior articulating surfaces. Peripheral displacement of medial meniscus bowing medial collateral ligament. Oblique tear involving posterior horn of lateral meniscus extending to inferior articulating surface. 2. Cruciate ligaments are intact. Low-grade MCL sprain/intrasubstance partial-thickness tear. 3. Distal quadriceps tendinosis at its superior patellar insertion. Patellar tendon is intact. 4. Nifz-so-zisriggg tricompartmental osteoarthritis and chondromalacia more prominent in medial femoral tibial compartment. Small to moderate amount of joint fluid, no gross loose bodies. Dictated by: Ayo Santiago M.D. on 04/03/2021 at 16:51 Approved by: Ayo Santiago M.D. on 04/03/2021 at 17:07
== END ==
PROVIDERS: PCP Internal Medicine; Referring Provider Internal Medicine; Visit Provider Internal Medicine
DX: S83.232A Complex tear of medial meniscus, current injury, left knee, initial encounter (principal); S83.282A Other tear of lateral meniscus, current injury, left knee, initial encounter; S83.412A Sprain of medial collateral ligament of left knee, initial encounter; M17.12 Unilateral primary osteoarthritis, left knee; M94.262 Chondromalacia, left knee; M25.562 Pain in left knee
CPT/HCPCS: 73721

== ENCOUNTER → 2023-05-04 09:48 | Outpatient (CLI) | payer MEDICARE, OTHER, SELFPAY ==
[2023-05-04 11:21] LABS: Prostate Specific Antigen 0.799 ng/mL (0.10-4.00)
== END ==
PROVIDERS: PCP Internal Medicine; Referring Provider Specialist; Visit Provider Specialist
DX: N40.1 Benign prostatic hyperplasia with lower urinary tract symptoms (principal); N13.8 Other obstructive and reflux uropathy
CPT/HCPCS: 36415; 51798; 81002; 84153; 99213

== ENCOUNTER → 2023-07-12 06:48 | Outpatient (CLI) | payer MEDICARE, OTHER, SELFPAY ==
[2023-07-12 08:18] LABS: Add Manual Diff / Slide Review NO; Basophils Absolute Auto 100 /uL (0-100); Basophils Percent Auto 0.9 % (0-2); Eosinophils Absolute Auto 400 /uL (0-450); Eosinophils Percent Auto 6.5 % (2-4); Hematocrit 41.1 % (41-53); Hemoglobin 14.2 g/dL (13.5-17.5); Lymphocytes Absolute Auto 700 /uL (1100-4500); Mean Corpuscular HGB Conc 34.5 % (30-36); Mean Corpuscular Hemoglobin 31.3 PG (26-34); Mean Corpuscular Volume 90.7 fL (80-100); Monocytes Absolute Auto 700 /uL (0-900); Monocytes Percent Auto 10.6 % (3-14); Neutrophils Absolute Auto 4500 /uL (1500-7000); Platelet Count 167 X10^3/uL (150-400); Red Blood Cell Count 4.53 X10^6/uL (4.5-5.9); Red Cell Distribution Width 13.9 % (11.6-14.8); White Blood Cell Count 6.4 X10^3/uL (4.5-11.0)
[2023-07-12 08:27] LABS: Alanine Aminotransferase 20 IU/L (<50); Albumin 4.1 g/dL (3.5-5.0); Albumin Globulin Ratio 1.6 (1.0-2.8); Alkaline Phosphatase 73 U/L (38-126); Aspartate Aminotransferase 25 IU/L (17-59); BUN Creatinine Ratio 22.4 (6-22); Bilirubin Total 1.5 mg/dL (0.2-1.3); Blood Urea Nitrogen 19 mg/dL (9-20); Calcium 9.2 mg/dL (8.4-10.2); Carbon Dioxide 30 mmol/L (22-32); Chloride 106 mmol/L (98-107); Cholesterol 178 mg/dL (140-199); Estimated Glomerular Filt Rate > 60 mL/min (>60); Globulin 2.6 g/dL (1.7-4.1); Glucose 110 mg/dL (80-110); HDL Cholesterol 33 mg/dL (40-60); HEMOLYSIS < 15 (0-50); LDL Cholesterol Calculated 114 mg/dL (<100); Potassium 4.2 mmol/L (3.4-5.1); Sodium 140 mmol/L (137-145); Total Protein 6.7 g/dL (6.3-8.2); Triglycerides 156 mg/dL (35-150)
[2023-07-12 09:03] LABS: Appearance Urine UA CLEAR; Bilirubin Urine UA NEGATIVE (NEGATIVE); Color Urine UA YELLOW; Glucose Urine UA NEGATIVE (Negative); Ketones Urine UA NEGATIVE (NEGATIVE); Leukocyte Esterase Urine UA NEGATIVE (NEGATIVE); Nitrite Urine UA NEGATIVE (Negative); Occult Blood Urine UA NEGATIVE (Negative); Protein Urine UA NEGATIVE (Negative); Urobilinogen Urine UA 0.2 E.U./dL (0.2); pH Urine UA 5.5 (4.5-8.0)
[2023-07-12 09:23] LABS: Microalbumin Urine Random 1.1 mg/dL (0-1.6)
[2023-07-12 10:50] LABS: Bacteria Urine None Seen; Culture Indicated Urine Cult Not Indicated; RBC Urine None Seen (0-5/HPF); Squamous Epithelial Cell Urine None Seen (0-5/HPF); Urine Volume 10mL (spun); WBC Urine 0-1/HPF (0-5/HPF)
[2023-07-13 03:42] LABS: Apolipoprotein B 101 mg/dL (<90)
== END ==
PROVIDERS: PCP Family Medicine; Referring Provider Family Medicine; Visit Provider Family Medicine
DX: L40.9 Psoriasis, unspecified (principal); I48.91 Unspecified atrial fibrillation; N40.1 Benign prostatic hyperplasia with lower urinary tract symptoms; N13.8 Other obstructive and reflux uropathy; R10.32 Left lower quadrant pain
CPT/HCPCS: 36415; 80053; 80061; 81001; 82043; 82172; 82570; 85025

== ENCOUNTER 2023-08-02 06:15 | Day surgery (SDC) | payer MEDICARE, OTHER, SELFPAY ==
[2023-07-20 12:26] VITALS: BMI 28.6
[2023-08-02] VITALS (10 sets, daily range): BP systolic 110–147; BP diastolic 56–72; PULSE 54–63; RESP 15–18; TEMP 36.3–36.5; O2SAT 92–96; BMI 28.1
[2023-08-02] MEDS: ACETAMINOPHEN IV 1,000 MG/100 ML VIAL 400 MG IV (07:08)
[2023-08-02] MEDS: LACTATED RINGERS 1,000 ML 21 ML IV (07:08)
[2023-08-02 07:28] LABS: Hematocrit 39.1 % (41-53); Hemoglobin 13.3 g/dL (13.5-17.5)
--- NOTE | 2023-08-02 07:31 | PM.PREOP ---
Pre-operative Note Interval Note History & Physical reviewed/Exam performed by Physician: Yes Changes to H&P: No
[2023-08-02] MEDS: CEFAZOLIN 2 GM/100 ML PREMIX 100 ML IV (07:50)
[2023-08-02] MEDS: TRANEXAMIC ACID 1,000 MG in SODIUM CHLORIDE 0.9% 100 ML 200 MG IV (08:10)
--- NOTE | 2023-08-02 08:30 | SUR.OPER ---
Lithotomy on padded OR bed, head on pillow, arms secured on padded arm boards at <90 degrees abduction. Legs secured in padded yellow fins stirrups.
--- NOTE | 2023-08-02 09:52 | PM.OP.1 ---
Operative Date/Time/Diagnoses Date of procedure: 08/02/23 Time of procedure: 09:35 Pre-op diagnosis: 1. Benign prostate hyperplasia. 2. Failure medical therapy. Post-op diagnosis: same Procedure & Clinicians Procedure: 1. Transrectal ultrasound for diagnostic and guidance. 2. Cystoscopy/Transurethral resection of prostate. 3. AQUABLATION. Same procedure as scheduled: Yes Indications: 1. Benign prostate hyperplasia. 2. Failure medical therapy. Surgeon: Darrick Cortez Click Yes if Unassisted: Yes Anesthesia Type: General Operative Notes Findings: 1. Prostate volume= 37.64 cc 2. Prostate urethral length= 4.73 cm 3. IPSS score 21/35. 4. Quality life score 6/6. Closure Type: not applicable Specimen(s): none sent Applied: catheter (Twenty-four Green[place]ic three-way hematuria catheter to normal saline continuous bladder irrigation.) Estimated Blood Loss (mL): 5 Blood products transfused: none Procedure in detail: The patient was positioned in supine and administered general anesthesia. He was then repositioned appropriately in semi lithotomy. 60 cc of lubricant were then instilled into the rectal vault. The TRUS ultrasound probe was then inserted in to the rectum and the prostate was centered and aligned in both the transverse and sagittal planes. The aqua beam handpiece was then inserted into the lower urinary tract and positioned in the mid prostate urethra at maximal dimensions in the transverse plane. The aqua beam probe was then advanced into the bladder and views were obtained in the transverse and sagittal planes. The aqua beam lens was then brought back to the level of the X external sphincter and then advanced slightly proximal to the external sphincter. The median lobe program option was then selected. Midline alignment of the aqua beam handpiece at 12:00 p.m. was confirmed. Imaging was then directed back to the prostate in the sagittal plane. The treatment program was then developed placing multidimensional markers at desired Aquablation resection depth from level of the bladder neck to a point proximal to the external sphincter. The treatment plan was then developed 4th the median lobe. Final confirmation of the treatment plan was conducted. The 1st pass was then conducted at the proximal edge of the intravesical median lobe to a point just proximal to the external sphincter. The verumontanum was preserved. Once the 1st treatment pass was completed, and updated treatment plan was then conducted in the sagittal plane. Archuleta markers were repositioned and adjusted as indicated. Second pass treatment plan was then confirmed in the 2nd pass was conducted from a point just proximal of the bladder neck to a point just proximal to the external sphincter. The aqua beam handpiece was then removed. The resectoscope was then advanced in the lower urinary tract under direct visualization. The Simplesurance evacuator was used to irrigate a small amount of clot and some tissue. The resectoscope was then fitted with the thick loop and a small amount of residual tissue of the median lobe at the bladder neck as well as treated tissue from approximately the 2 o'clock position to the 9 o'clock position was then resected and focal bladder neck cautery conducted as indicated for hemostasis. Attention was then turned anteriorly where a couple of mucosal bleeders were identified. These were cauterized under direct visualization. Prostate fossa was then inspected the full length, and circumferentially to the distal point of treatment. Focal cautery was applied where needed and indicated. The scope was then repositioned in the bladder and the contents irrigated clear. The bladder was then left partially filled and the resectoscope was removed. A 24 Green[place]ic three-way hematuria catheter was then advanced into the bladder over a wire catheter guide uneventfully. The balloon was filled to 30 cc and gently snugged to the bladder neck. The TRUS probe was then removed. The catheter was connected to normal saline continuous bladder irrigation to gravity. The patient was then repositioned in supine, was awakened, and then transported recovery in stable condition. Complications: none Post-operative Condition: stable Disposition: PACU Plan for aftercare: 1. Observe in PACU. 2. Anticipate same-day discharge pending observation Post Aquablation.
== END 2023-08-02 13:20 | disposition home or self-care (01) ==
PROVIDERS: PCP Family Medicine; Referring Provider Specialist; Visit Provider Specialist
PROC: 0VT08ZZ Resection of Prostate, Via Natural or Artificial Opening Endoscopic (ICD-10-PCS; CPT 0421T; principal; 2023-08-02 07:45)
DX: N40.1 Benign prostatic hyperplasia with lower urinary tract symptoms (principal); N13.8 Other obstructive and reflux uropathy
CPT/HCPCS: 0421T; 36415; 85014; 85018; 86850; 86900; 86901; C2596; J0136; J0171; J0690; J1100; J2405; J2704; J3010; J3490

== ENCOUNTER → 2023-08-07 11:02 | Outpatient (CLI) | payer MEDICARE, OTHER, SELFPAY ==
--- NOTE | 2023-08-07 11:03 | DI.CT.S_ITS ---
PROCEDURE: CT ABDOMEN PELVIS W CON INDICATIONS: Continued LLQ pain, hx of diverticulitis TECHNIQUE: After the administration of intravenous contrast, axial sections acquired from the lung bases to the pubic symphysis. Coronal and sagittal reformats were performed. For radiation dose reduction, the following was used: automated exposure control, adjustment of mA and/or kV according to patient size. COMPARISON: None. FINDINGS: Image quality: Diagnostic. Lower Chest: No significant findings. ABDOMEN: Liver: No solid mass. Multiple subcentimeter hypodensities within the liver with fluid attenuation favored to represent hepatic cyst. A few these cystic structures have internal septation. Gallbladder: Cholelithiasis without evidence of acute cholecystitis. Biliary ducts: No biliary dilation. Pancreas: No ductal dilation. Spleen: Size is within normal limits. Adrenal Glands: No adrenal nodules. Kidneys and Ureters: No hydronephrosis. No solid mass. No complex renal cystic lesion which requires follow up. Stomach and Bowel: Normal colonic caliber, without significant wall thickening. Numerous colonic diverticula with the 5th trace amount of fat stranding along the descending colon. No fluid collection, abscess, or free air identified. Peritoneum: No abnormal intraperitoneal fluid. No free air. Ventral Wall: No significant ventral hernia. Abdominal Nodes: No retroperitoneal or mesenteric adenopathy by size criteria. Vessels: Aorta and inferior vena cava are normal in size. PELVIS: Pelvic Organs: Unremarkable. Bladder: No bladder wall thickening, accounting for underdistention. Pelvic Nodes: No enlarged lymph nodes. Miscellaneous: No inguinal hernias are seen. Bones: No aggressive osseous abnormality. IMPRESSION: Colonic diverticula with subtle fat stranding and inflammatory changes along the descending colon consistent with simple diverticulitis. Dictated by: Yasir Fuller M.D. on 08/07/2023 at 11:44 Approved by: Yasir Fuller M.D. on 08/07/2023 at 11:52
== END ==
LOC: CT 11:02
PROVIDERS: PCP Family Medicine; Referring Provider Family Medicine; Visit Provider Family Medicine
DX: K80.20 Calculus of gallbladder without cholecystitis without obstruction (principal); R10.32 Left lower quadrant pain; K57.30 Diverticulosis of large intestine without perforation or abscess without bleeding; Z87.19 Personal history of other diseases of the digestive system
CPT/HCPCS: 74177; Q9967

== ENCOUNTER → 2023-09-02 12:09 | Outpatient (CLI) | payer MEDICARE, OTHER, SELFPAY ==
[2023-09-03 14:20] LABS: Prostate Specific Antigen 0.481 ng/mL (0.10-4.00)
== END ==
PROVIDERS: PCP Family Medicine; Referring Provider Specialist; Visit Provider Specialist
DX: N40.1 Benign prostatic hyperplasia with lower urinary tract symptoms (principal); N13.8 Other obstructive and reflux uropathy
CPT/HCPCS: 36415; 84153

== ENCOUNTER → 2023-09-16 08:03 | Outpatient (CLI) | payer MEDICARE, OTHER, SELFPAY | PROVIDERS: PCP Family Medicine; Visit Provider Specialist | DX: N40.1 Benign prostatic hyperplasia with lower urinary tract symptoms (principal); N13.8 Other obstructive and reflux uropathy | CPT/HCPCS: 87086 ==

== ENCOUNTER → 2024-08-04 09:53 | Outpatient (CLI) | payer MEDICARE, OTHER, SELFPAY ==
[2024-08-04 10:44] LABS: Add Manual Diff / Slide Review NO; Basophils Absolute Auto 100 /uL (0-100); Basophils Percent Auto 0.8 % (0-2); Eosinophils Absolute Auto 200 /uL (0-450); Eosinophils Percent Auto 3.2 % (2-4); Hematocrit 40.1 % (41-53); Hemoglobin 13.6 g/dL (13.5-17.5); Lymphocytes Absolute Auto 700 /uL (1100-4500); Lymphocytes Percent Auto 10.3 % (25-40); Mean Corpuscular Hemoglobin 31.1 PG (26-34); Mean Corpuscular Volume 91.7 fL (80-100); Monocytes Absolute Auto 700 /uL (0-900); Monocytes Percent Auto 9.9 % (3-14); Neutrophils Absolute Auto 5200 /uL (1500-7000); Neutrophils Percent Auto 75.8 % (50-75); Platelet Count 161 X10^3/uL (150-400); Red Blood Cell Count 4.37 X10^6/uL (4.5-5.9); Red Cell Distribution Width 14.2 % (11.6-14.8); White Blood Cell Count 6.8 X10^3/uL (4.5-11.0)
[2024-08-04 11:09] LABS: BUN Creatinine Ratio 21.7 (6-22); Blood Urea Nitrogen 18 mg/dL (9-20); Calcium 8.8 mg/dL (8.4-10.2); Carbon Dioxide 28 mmol/L (22-32); Chloride 104 mmol/L (98-107); Estimated Glomerular Filt Rate > 60 mL/min (>60); Glucose 96 mg/dL (80-110); HEMOLYSIS < 15 (0-50); Potassium 4.3 mmol/L (3.4-5.1); Sodium 140 mmol/L (137-145)
== END ==
PROVIDERS: PCP Family Medicine; Referring Provider Internal Medicine Cardiovascular Disease; Visit Provider Internal Medicine Cardiovascular Disease
DX: I48.19 Other persistent atrial fibrillation (principal)
CPT/HCPCS: 36415; 80048; 85025

== ENCOUNTER → 2024-08-28 09:07 | Outpatient (CLI) | payer MEDICARE, OTHER, SELFPAY ==
[2024-08-28 10:36] LABS: Cholesterol 198 mg/dL (140-199); HDL Cholesterol 38 mg/dL (40-60); LDL Cholesterol Calculated 130 mg/dL (<100); Triglycerides 150 mg/dL (35-150)
[2024-08-28 11:01] LABS: Creatinine Urine Random 51.52 mg/dL
[2024-08-28 11:06] LABS: Prostate Specific Antigen Scrn 1.29 ng/mL (0.1-4.0)
[2024-08-28 11:06] LABS: Microalbumin Urine Random 1.2 mg/dL (0-1.6)
[2024-08-29 04:08] LABS: Apolipoprotein B 100 mg/dL (<90)
== END ==
PROVIDERS: PCP Family Medicine; Referring Provider Family Medicine; Visit Provider Family Medicine
DX: L40.9 Psoriasis, unspecified (principal); Z12.5 Encounter for screening for malignant neoplasm of prostate; I48.91 Unspecified atrial fibrillation; N40.1 Benign prostatic hyperplasia with lower urinary tract symptoms; N13.8 Other obstructive and reflux uropathy
CPT/HCPCS: 36415; 80061; 82043; 82172; 82570; G0103

== ENCOUNTER 2025-01-23 11:29 | Emergency (ER) | payer MEDICARE, OTHER, SELFPAY ==
[2025-01-23 11:36] VITALS: BP 147/72; PULSE 66; RESP 18; TEMP 36.8; O2SAT 97; BMI 23.0
--- NOTE | 2025-01-23 11:40 | DI.RAD.S_ITS ---
PROCEDURE: XR KNEE RT 3V INDICATIONS: Right knee pain TECHNIQUE: 3 views of the knee were acquired. COMPARISON: None. FINDINGS: Moderate to severe degenerative changes of the right knee with joint space narrowing and osteophytes in the lateral greater than patellofemoral greater than medial compartments, Kellgren Christopher grade 3-4. Mild knee joint effusion. No radiographic evidence of displaced fracture, dislocation or high attenuation foreign body. IMPRESSION: Degenerative changes. Mild knee joint effusion. If symptoms persist or worsen, or there is high clinical suspicion of right knee abnormality, MRI could be performed. Dictated by: Navid Boswell M.D. on 01/23/2025 at 13:24 Approved by: Navid Boswell M.D. on 01/23/2025 at 13:26
--- NOTE | 2025-01-23 13:53 | ED_ITS ---
<Statement entered by Maycol Gardner, DO - 01/23/25 20:27> Co-sign statement: I was available for consultation during this patient's emergency department visit. This chart is being signed by myself for administrative purposes only. I do not have direct contact with this patient during this visit. They were seen independently by the APC. HPI - Extremity Injury (Lower) General Chief Complaint: Extremity Injury, Lower Stated Complaint: Right knee pain , stepping up on his truck Time Seen by Provider: 01/23/25 11:39 Source: patient Mode of arrival: Wheelchair History of Present Illness HPI Narrative: Mr. Del Valle is a very pleasant 79-year-old gentleman past medical history of atrial fibrillation on Xarelto who presents to the emergency department with his for right knee pain since yesterday. Patient states that he was attempting to step up into his truck yesterday when he had acute pain and crunching noise of the right knee. He had swelling immediately. Initially he was able to walk however today due to the pain he is no longer unable to bear weight on the knee. He did not fall when this happened. He has not taken any pain medications. There are no open wounds or deformities of the leg but he does have a lot of swelling of the right knee. States that he was not able to fully extend the knee prior to injury, he is now most comfortable with the knee in slight flexion. No redness, increased warmth, wounds or pain elsewhere on the body. Related Data Home Medications ?Medication ?Instructions ?Recorded ?Confirmed Fish Oil 1 cap PO DAILY 06/27/1810/11 aspirin 81 mg tablet,delayed 81 mg PO DAILY 06/27/18 0 08/22/24 release losartan 50 mg tablet 50 mg PO DAILY 06/27/1810/11 multivitamin 1 tab PO DAILY 06/27/1810/11 metoprolol succinate 25 mg 37.5 mg PO BID 08/22/2410/11 tablet,extended release 24 hr rivaroxaban 20 mg tablet (Xarelto) 20 mg PO DAILY Afib 08/22/24 08/22/24 Previous Rx's ?Medication ?Instructions ?Recorded hydrocodone 5 mg-acetaminophen 325 1 tab PO Q4-6H PRN pain (scale 01/23/25 mg tablet score 7-10) #12 tabs Allergies Allergy/AdvReac Type Severity Reaction Status Date / Time almond Allergy Unknown per blood Verified 01/23/25 11:37 test amiodarone Allergy Unknown mental Verified 01/23/25 11:37 status change egg Allergy Unknown per blood Verified 01/23/25 11:37 test piroxicam (From Feldene) Allergy Unknown Rash Verified 01/23/25 11:37 sulfamethoxazole (From Allergy Unknown Rash Verified 01/23/25 11:37 Septra) trimethoprim (From Septra) Allergy Unknown Rash Verified 01/23/25 11:37 Review of Systems Review of Systems ROS Unobtainable: All systems reviewed & are unremarkable except as noted in HPI and below Patient History Medical History Postop check 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 Vision disorder Hearing loss Psoriasis (~2022) TIA (transient ischemic attack) (~1994) Shoulder pain (~1986) Fractures (~2006) Mumps (~1952) Measles (~1951) Atrial fibrillation (~1997) BPH w urinary obs/LUTS (~2014) Surgical History H/O aortic valve replacement (09/22/13) Hx of maze procedure (09/22/13) History of cardiac radiofrequency ablation Anesthesia History of shoulder surgery (~1987) Hx of ascending aorta replacement (~2013) Family History Father Cancer Emphysema lung Sister Diabetes mellitus Hypertension Bacterial UTI Thyroid disorder History of heart disease Grandfather Pneumonia Social History marital status: number of children: 4 household members: spouse alcohol intake: current Type(s) of exercise: other frequency: 3-4 times per week Smoking Status: Unknown if ever smoked alcohol intake frequency: holidays/special occasions only Exam Narrative Exam Narrative: GENERAL: 79 year old patient appears stated age. Well-developed patient, in no acute distress. HEAD: Atraumatic. Normocephalic. NECK: Trachea midline. Cervical ROM intact. CARDIOVASCULAR: Regular rate RESPIRATORY: ?Nonlabored respirations. ?Speaking in clear, full sentences. ? EXTREMITIES: Right knee with edema, tenderness to palpation of anterior knee, pain with flexion and extension, limited range of motion but he does have intact flexion-extension strength. No erythema or increased warmth. No open wounds. 2+ DP and PT pulses bilaterally, no calf swelling. NEURO: AOx3. ?Clear speech. ? SKIN: No rash or erythema of visible areas Initial Vital Signs Initial Vital Signs: Vital Signs Temperature 98.3 F 01/23/25 11:36 Pulse Rate 66 01/23/25 11:36 Respiratory Rate 18 01/23/25 11:36 Blood Pressure 147/72 H 01/23/25 11:36 Pulse Oximetry 97 01/23/25 11:36 Oxygen Delivery Method Room Air 01/23/25 11:36 Course Orders Ordered: ED Orders 01/23/25 11:40 XR knee RT 3V Stat 01/23/25 14:33 Consult to [facility] Stat Discontinued Medications Acetaminophen (Acetaminophen 325 Mg Tablet) 650 mg PO NOW ONE Stop: 01/23/25 13:57 Last Admin: 01/23/25 14:03 Dose: 650 mg Hydrocodone Bitart/Acetaminophen (Hydrocodone/Acet 5/325 Tablet) 1 tab PO NOW ONE Stop: 01/23/25 13:54 Last Admin: 01/23/25 14:08 Dose: 1 tab Vital Signs Vital signs: Vital Signs - 8 hr 01/23/25 11:36 01/23/25 14:58 Temperature 98.3 F Pulse Rate 66 73 Respiratory Rate 18 17 Blood Pressure 147/72 H 173/92 H Pulse Oximetry 97 95 Oxygen Delivery Method Room Air Room Air MDM - Extremity Injury (Lower) Medical Records Attestation: I reviewed the patient's medical records. Imaging Data Right Knee XR: Radiologist's Impression: PROCEDURE: XR KNEE RT 3V INDICATIONS: Right knee pain TECHNIQUE: 3 views of the knee were acquired. COMPARISON: None. FINDINGS: Moderate to severe degenerative changes of the right knee with joint space narrowing and osteophytes in the lateral greater than patellofemoral greater than medial compartments, Kellgren Christopher grade 3-4. Mild knee joint effusion. No radiographic evidence of displaced fracture, dislocation or high attenuation foreign body. IMPRESSION: Degenerative changes. Mild knee joint effusion. If symptoms persist or worsen, or there is high clinical suspicion of right knee abnormality, MRI could be performed. Dictated by: Navid Boswell M.D. on 01/23/2025 at 13:24 Approved by: Navid Boswell M.D. on 01/23/2025 at 13:26 [facility] Narrative Medical decision making narrative: 79-year-old gentleman past medical history of atrial fibrillation on Xarelto who presents to the emergency department with his for right knee pain since yesterday. Differential diagnosis includes but is not limited to right knee sprain, strain, fracture, dislocation, quad tendon rupture, arthritis, etc. On exam patient is in no acute distress, nontoxic appearing, vital signs ap propriate. He has swelling of the right knee and pain with range of motion. His lower extremities are neurovascularly intact, no open wounds or deformities, no redness or increased warmth. X-ray obtained in triage, we will treat pain with hydrocodone and acetaminophen. Right knee x-ray reveals mild knee joint effusion, degenerative changes. Right knee was placed into an immobilizer, provided with crutches, discussed rice therapy, Tylenol for mild pain, [place] for severe pain, follow up with Orthopedics for further management. Patient is aware that he may need a knee replacement. We discussed my suspicion for soft tissue injury in the setting of underlying severe arthritis. Discussed ER return precautions and ortho follow up. Patient verbalized understanding of all information agreeable with the plan. Narcotic rest discussed. He is stable for discharge home with his . Discharge Plan Departure Patient Disposition: Home Clinical Impression: Effusion of right knee Degenerative joint disease of knee, right Qualifiers: Osteoarthritis type: unspecified Qualified Code(s): M17.11 - Unilateral primary osteoarthritis, right knee Instructions: DI for Knee Pain Activity Restrictions/Additional Instructions: Dear Jacy Del Valle, Thank you for coming to the emergency department. Today you were evaluated for right knee pain. Your x-ray showed an effusion and severe arthritis. I am concerned that you have sprained or torn some of the ligaments in your right knee. Please call and schedule an appointment with [facility] for further management. Please use RICE therapy for your pain in addition to acetaminophen. Rest the painful area. Ice the area of pain/swelling for at least 15 minutes, 4x a day. Compress the area of swelling using a brace, wrap, or splint if applied. Elevate the painful or swollen extremity by supporting it above the level of the heart with pillows when sitting or laying. You have been prescribed a short course of narcotic medications. These are potentially dangerous and addictive medications that should be used carefully. While on these medications you cannot drive or operate heavy machinery. Additionally, you cannot sign legal documents or perform any duties such as this. Many people get constipated on narcotic medications so it would be advisable to discuss stool softeners with the pharmacist when you picker tender your prescription. Please understand that we cannot provide further refills of narcotics or controlled substances through the ED and your pain management will need to be through your Primary Care Provider Please follow up with your primary care doctor within the next 2-3 days for ER follow-up. (If you do not have a PCP you can call [phone]. ?to schedule an appointment with an [facility] Primary Care Provider) IF YOU DEVELOP ANY NEW OR WORSENING SYMPTOMS, RETURN TO THE ER! Please read the attached instructions, they highlight more specific treatments and interventions for you at home. Thank you for letting me participate in your care, Akosua De La Cruz PA-C Prescriptions: New hydrocodone-acetaminophen 5-325 mg tablet 1 tab PO Q4-6H PRN (Reason: pain (scale score 7-10)) Qty: 12 0RF No Action Xarelto 20 mg tablet 20 mg PO DAILY metoprolol succinate 25 mg tablet extended release 24 hr 37.5 mg PO BID multivitamin Tablet 1 tab PO DAILY losartan 50 mg Tablet 50 mg PO DAILY aspirin 81 mg Tablet,Delayed Release (Dr/Ec) 81 mg PO DAILY Fish Oil 1 cap PO DAILY Referrals: Estuardo Lambert MD [Primary Care Provider, Family Practice] Navid Urena MD [Physician, Orthopedic Surgery] Referral Note: R knee pain Stand Alone Forms: Patient Portal/API
[2025-01-23] MEDS: ACETAMINOPHEN 325 MG TABLET 650 MG PO (14:03)
[2025-01-23 14:58] VITALS: BP 173/92; PULSE 73; RESP 17; O2SAT 95
== END 2025-01-23 15:00 | disposition home or self-care (01) ==
PROVIDERS: Emergency Provider Physician Assistant; PCP Family Medicine
DX: M25.461 Effusion, right knee (principal); M17.11 Unilateral primary osteoarthritis, right knee; Z79.01 Long term (current) use of anticoagulants; X58.XXXA Exposure to other specified factors, initial encounter
CPT/HCPCS: 73562; 99283

== ENCOUNTER → 2025-03-22 11:23 | Outpatient (CLI) | payer MEDICARE, OTHER, SELFPAY ==
[2025-03-22 12:59] LABS: Prostate Specific Antigen 1.57 ng/mL (0.10-4.00)
== END ==
PROVIDERS: PCP Family Medicine; Referring Provider Family Medicine; Visit Provider Urology
DX: N40.1 Benign prostatic hyperplasia with lower urinary tract symptoms (principal); N13.8 Other obstructive and reflux uropathy
CPT/HCPCS: 36415; 84153